=== PATIENT | female | born 1965 | race Caucasian/White ===

== ENCOUNTER 2022-09-04 17:46 | Emergency (ER) | payer MEDICAID, OTHER ==
[~2022-09-04] VITALS: Ht 157.5 cm; Wt 63.0 kg
[2022-09-04] MEDS ORDERED: ONDANSETRON HCL 4MG/2ML INJ IV STA (18:14)
[2022-09-04] MEDS ORDERED: MORPHINE SULFATE 4 MG/ML CPJ (NOT FOR IM USE) IV STA (18:14)
[2022-09-04] MEDS ORDERED: SODIUM CHLORIDE 0.9% 1000ML BAG (SEPSIS BOLUS) IV ONE (18:15)
[2022-09-04] MEDS ORDERED: SODIUM CHLORIDE 0.9% 1,000 ML IV ONE (18:15)
[2022-09-04 18:57] LABS: HEMATOCRIT. 38.6 % (36.0-48.0); HEMOGLOBIN. 12.7 g/dL (12.0-16.0); MEAN CORPUSCULAR HEMOGLOBIN 27.7 pg (28.0-32.0); MEAN CORPUSCULAR VOLUME 84.1 fL (81.0-99.0); MEAN PLATELET VOLUME 8.4 fl (7.4-10.4); PLATELET 311 x1000/uL (130-400); RED BLOOD CELL COUNT 4.59 mill/uL (4.2-5.4); RED CELL DISTRIBUTION WIDTH 13.5 % (11.6-14.6)
[2022-09-04 19:03] LABS: CHLORIDE 102 mEq/L (98-107)
[2022-09-04 19:15] LABS: D-DIMER 5.59 mg/L FEU (<0.50); INR 1.1; PARTIAL THROMBOPLASTIN TIME 28.2 sec (23.4-31.0); PROTHROMBIN TIME 11.8 sec (9.6-11.0)
[2022-09-04] MEDS ORDERED: CEFTRIAXONE 1 G PREMIX 50 ML IV ONE (20:15)
[2022-09-04] MEDS ORDERED: POTASSIUM CHLORIDE 20MEQ TABLET SR PO ONE (20:15)
[2022-09-04 20:33] LABS: CLARITY URINE CLEAR (CLEAR); COLOR URINE YELLOW (YELLOW); KETONES URINE 4+ (NEGATIVE); LEUKOCYTE ESTERASE URINE NEGATIVE (NEGATIVE); NITRITE URINE NEGATIVE (NEGATIVE); OCCULT BLOOD URINE 2+ (NEGATIVE); PH URINE 5.5 (4.5-8.0); PROTEIN URINE 3+ (NEGATIVE); SPECIFIC GRAVITY URINE 1.027 (1.005-1.030)
[2022-09-04 21:14] LABS: PLATELET ESTIMATE NORMAL
[2022-09-04] MEDS ORDERED: MORPHINE SULFATE 4 MG/ML CPJ (NOT FOR IM USE) IV ONE (23:54)
[2022-09-04 23:58] VITALS: BP 161/67
[2022-09-05] MEDS ORDERED: MORPHINE SULFATE 4 MG/ML CPJ (NOT FOR IM USE) IV ONE ×2
== END 2022-09-05 00:12 | disposition short-term general hospital (02) ==
LOC: ER 17:46
DX: N10 Acute pyelonephritis (principal); R07.9 Chest pain, unspecified; E87.6 Hypokalemia; J84.10 Pulmonary fibrosis, unspecified; K40.20 Bilateral inguinal hernia, without obstruction or gangrene, not specified as recurrent; I10 Essential (primary) hypertension; E11.9 Type 2 diabetes mellitus without complications
CPT/HCPCS: 36415; 71045; 71275; 74176; 80053; 81003; 82962; 83605; 83690; 83880; 84145; 84484; 85025; 85379; 85610; 85730; 86850; 86900; 86901; 87040; 87077; 87086; 87186; 93005; 96365; 96375; 96376; 99285; J0696; J2270; J2405; J7030